=== PATIENT | male | born 1985 | race Caucasian/White ===

== ENCOUNTER 2020-04-27 22:07 | Emergency (ER) | payer SELFPAY ==
[~2020-04-27] VITALS: Ht 177.8 cm; Wt 77.0 kg
[2020-04-27 22:10] VITALS: BP 132/78
== END 2020-04-28 00:37 | disposition left against medical advice (07) ==
LOC: ER 22:07
DX: Z53.21 Procedure and treatment not carried out due to patient leaving prior to being seen by health care provider (principal)